=== PATIENT | male | born 1970 | race Hispanic/Latino ===

== ENCOUNTER 2021-09-24 13:42 | Emergency (ER) | payer OTHER ==
[~2021-09-24] VITALS: Ht 160 cm; Wt 95.3 kg
[2021-09-24] MEDS ORDERED: KETOROLAC 15MG/ML VIAL (15MG/ML) IV ONE (14:00)
[2021-09-24] MEDS ORDERED: 0.9% NACL 500ML IV.SOLN 500 ML IV ONE (14:00)
[2021-09-24] MEDS ORDERED: ONDANSETRON 4MG INJ IVP ONE (14:00)
[2021-09-24 14:06] LABS: BASOPHILS % (AUTO) 0.4 % (0.0-5.0); EOSINOPHILS % (AUTO) 2.6 % (0.0-8.0); HEMATOCRIT 45.1 % (42-54); LYMPHOCYTES % (AUTO) 16.3 % (21.0-51.0); MEAN CORPUSCULAR HEMOGLOBIN 28.8 pg (27.0-33.0); MEAN CORPUSCULAR HGB CONC 33.9 g/dL (32.0-36.0); MEAN CORPUSCULAR VOLUME 84.8 fL (79-99); MONOCYTES % (AUTO) 7.3 % (3.0-13.0); NEUTROPHILS % (AUTO) 73.1 % (40.0-77.0); PLATELET COUNT (AUTO) 243 K/uL (130-400); RED BLOOD CELL COUNT(AUTO) 5.32 MIL/uL (4.50-6.20); RED CELL DISTRIBUTION WIDTH 13.8 % (11.0-15.5); WHITE BLOOD COUNT (AUTO) 6.9 K/uL (4.8-10.8)
[2021-09-24 14:17] LABS: CREATININE 1.1 mg/dL (0.5-1.5); POTASSIUM 3.7 mmol/L (3.5-5.1)
[2021-09-24 14:22] LABS: ALBUMIN 4.2 g/dL (3.5-5.0); TOTAL PROTEIN, SERUM 8.8 g/dL (6.0-8.3)
[2021-09-24 15:43] LABS: APPEARANCE,URINE CLEAR (CLEAR); BILIRUBIN,URINE NEGATIVE (NEGATIVE); COLOR,URINE YELLOW (YELLOW); GLUCOSE, URINE (UA) NEGATIVE (NEGATIVE); KETONES,URINE NEGATIVE (NEGATIVE); LEUKOCYTE ESTERASE ,URINE NEGATIVE (NEGATIVE); NITRATE,URINE NEGATIVE (NEGATIVE); OCCULT BLOOD,URINE TRACE-INTACT (NEGATIVE); PROTEIN,URINE TRACE mg/dL (NEGATIVE)
[2021-09-24 16:04] LABS: BACTERIA,URINE Few /HPF (None Seen)
[2021-09-24 16:05] LABS: MUCUS,URINE Few LPF (None Seen); SQUAMOUS EPITHELIAL CELL,UR Few /HPF (0-2)
[2021-09-24 16:10] VITALS: BP 126/70
== END 2021-09-24 16:18 | disposition home or self-care (01) ==
LOC: EDH 13:42
DX: N20.0 Calculus of kidney (principal); Z98.890 Other specified postprocedural states
CPT/HCPCS: 99284; 74176; 96374; 96361; 96375; 80053; 83690; 85025; 81001; 36415; J7040; J2405; J1885

== ENCOUNTER 2023-04-27 19:57 | Emergency (ER) | payer BC ==
[~2023-04-27] VITALS: Ht 160 cm; Wt 95.3 kg
[2023-04-27] MEDS: IBUPROFEN 800 MG TAB PO ONE (23:41)
[2023-04-27] MEDS: DIPHENHYDRAMINE HCL 25 MG CAPSULE PO ONE (23:41)
[2023-04-27] MEDS: FAMOTIDINE 20MG TAB PO ONE (23:41)
[2023-04-27 23:57] LABS: SARS-CoV-2, RNA, NAAT NEGATIVE SARS CoV-2 (NEGATIVE)
[2023-04-28 00:01] LABS: INFLUENZA TYPE A Negative For Type A (NEGATIVE); INFLUENZA TYPE B Negative For Type B (NEGATIVE); RAPID GROUP A STREP negative (NEGATIVE)
[2023-04-28 00:13] VITALS: TEMP 98.6
[2023-04-28] MEDS ORDERED: LACT1CAP81 PO (00:34)
[2023-04-28] MEDS ORDERED: LORA-868 PO (00:34)
[2023-04-28] MEDS ORDERED: FAMO-136 PO (00:34)
[2023-04-28] MEDS ORDERED: ONDA4TAB10 SL (00:34)
[2023-04-28] MEDS ORDERED: ACET-66 PO (00:34)
[2023-04-28] MEDS ORDERED: IBUP-1493 PO (00:34)
[2023-04-28 00:40] VITALS: BP 135/87; PULSE 83; RESP 18; O2SAT 99
== END 2023-04-28 00:42 | disposition home or self-care (01) ==
LOC: EDH 19:57
DX: K52.9 Noninfective gastroenteritis and colitis, unspecified (principal); B34.9 Viral infection, unspecified; Z20.822 Contact with and (suspected) exposure to COVID-19
CPT/HCPCS: 99283; 87635; 87880; 87804 ×2; Q0163